=== PATIENT | female | born 2005 | race Caucasian/White ===

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

== ENCOUNTER 2025-03-20 09:49 | Emergency (ER) | payer OTHER, SELFPAY ==
--- OUTSIDE RECORDS SUMMARY | 2025-02-04 09:00 | XMS_ITS | Encounter Summary ---
Author Organization [facility] Address [address] [place] [address] [address] [place] [address] Care Team Providers Care Pre K Teacher Name Role Phone Madison Ren MD Primary Care Provider Jody Murray MECHANICAL EQUIPMENT SALES ENGINEER-PLANT SENIOR MANAGER Unavailable [phone] Reason for Visit * Reason Comments Wellness Physical Annual - sports phys icalWould like to discuss anxiety and possibly starting medication Encounter Details Date Type Department Care Team (Late st Contact Info) Description 02/04/2025 9:00 AM CDT Office Visit [facility] [address] [place], [place] [id number] Madison Ren MD [address] [place] [id number] Annual physical exam (Primary Dx); 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 ([facility]-HCC); Anxiety; Routine sports physical exam; Sprain of left middle finger, unspecified site of digit, subsequent encounter Discharge Disposition: Home, Self Care Social History Tobacco Use Types Packs/Day Years Used Date Smoking Tobacco: Never Passive Smoke Exposure: Never Smokeless Tobacco: Never Alcohol Use Standard Drinks/Week Comments No 0 (1 standard drink = 0.6 oz pur e alcohol) PHQ-2 Answer Date Recorded PHQ-9 Total (Adult) 7 02/04/2025 Abuse/Neglect Answer Date Recorded Member of Clubs or Organizations Not on file 02/05/2025 Does the patient display any signs or symptoms of abuse or neglect? No 02/05/2025 Sexually Active Control Partners Comments Yes Condom Male Comments No Sex and Gender Information Value Date Recorded Sex Assigned at Not on file Legal Sex Female 5:05 AM CDT Gender Identity Not on file Sexual Orientation Not on file documented as of this encounter Last Filed Vital Signs Vital Sign Reading Time Taken Comments Blood Pressure 110/62 02/04/2025 8:54 AM CDT Pulse 68 02/04/2025 8:54 AM CDT Temperature 36.4 C (97.6 F) 02/04/2025 8:54 AM CDT Respiratory Rate - - Oxygen Saturation 97% 02/04/2025 8:54 AM CDT Inhaled Oxygen Concentration - - Weight 66 kg (145 lb 6.4 oz) 02/04/2025 8:54 AM CDT Height 155.3 cm (5' 1.14) 02/04/2025 8:54 AM CD T Body Mass Index 27.35 02/04/2025 8:54 AM CDT documented in this encounter Functional Status * Do you have difficulty with walking, balance, climbing stairs, or had a fall in the last 3 months? Answer Date of Assessment Author No 02/03/2019 12:58 PM CDT Arabella Gomez LPN documented as of this encounter Patient Instructions * Attachments The following attachments cannot be sent through Care Everywhere. * Anxiety, Your Body's Response to (Iranian) documented in this encounter Progress Notes * Madison Ren MD - 02/04/2025 9:00 AM CDT Images from the original note were not included. Annual Wellness Exam Patient Name: Debi Corado Age/Sex: 19yr/female Date of visit: 02/04/2025 CSN: [id number] HPI Debi Corado is a 19yr female here for annual exam and sports physical. History of Present Illness She uses albuterol as needed for her allergy-induced asthma, which is triggered by exposure to dogs, cats, and dust. She does not require it for sports activities. She also takes Zyrtec for her allergies, which effectively manages her symptoms without causing additional runny or stuffy nose. She has no history of mood disorders but sought counseling this year due to difficulties with mood and anxiety. The counselor suggested several strategies, which were ineffective, and recommended anxiety medication. She reports feeling irritable and easily frustrated but does not feel depressed or tearful. Her motivation remains intact, and she has no thoughts of self-harm. She describes herself as a worrier, often feeling overwhelmed. Despite good time management skills, she struggles with weekly planning, leading to anxiety that affects her focus on schoolwork and hockey. She is currently studying premed and maintains satisfactory grades. She had a double sprain on her left third digit and was seeing a hand doctor in the spring. She wasgiven some treatments over the summer and was told it should be fine, but it is still swollen. She can bend it, but if she jams it wrong, it flares up and becomes tender. Has previously had xrays Problem List and History Problem List: Past Medical History: Diagnosis Date Allergy-induced asthma ([facility]) Allergy-induced asthma ([facility]) 02/04/2025 Surgical History: Past Surgical History: Procedure Laterality Date CLOSED PINNING 03/21/2012 RIGHT ELBOW CLOSED REDUCTION WITH PERCUTANEOUS PINNING VS.ORIF; Surgeon: Nicolas Livingston MD Allergies: No Known Allergies Social History: Social History Socioeconomic History Marital status: Single Tobacco Use Smoking status: Never Passive exposure: Never Smokeless tobacco: Never Substance and Sexual Activity Alcohol use: No Drug use: No Sexual activity: Yes Partners: Male control/protection: Condom Family History: Family History Problem Relation Name Age of Onset No Known Problems Mother No Known Problems Father No Known Problems Sister No Known Problems Sister No Known Problems Sister No Known Problems Brother Hypertension Maternal Grandmother Not otherwise listed - Cancer Maternal Grandmother Hypertension Maternal Grandfather Hypertension Paternal Grandmother Diabetes Paternal Grandfather Hypertension Paternal Grandfather Cardiomyopathy Neg Hx Sudden Neg Hx Arrhythmia Neg Hx Construction Technician: No data to display Patient's last menstrual period was 01/12/2025 (exact date). Menses regular Abnormal Bleeding: No Vaginal Discharge: No 0 Abnormal Pap Smear: NA Gardasil: Partial Sexual History: Sexually Active: Yes Sexual Orientation: heterosexual Number of Partners (Last 6 months): 1 Review of Systems Constitutional: No fever Eyes: No vision changes, eye pain or discharge. ENT: No ear pain, nasal congestion, rhinorrhea, sore throat Breast: No lumps, tenderness, redness or discharge. Cardiovascular: No chest pain, irregular heart beats or racing of heart Respiratory: No cough, shortness of breath or wheezing. Gastrointestinal: No abdominal pain, nausea, vomiting, constipation or diarrhea. No blood in stoolsor dark colored stools. Genito-Urinary: No pain or burning with urination. No trouble voiding. No vaginal discharge or abnormal vaginal bleeding. Musculoskeletal: No joint swelling. No back pain Neurological: No loss of consciousness Endocrine: No cold or heat intolerance. No menstrual irregularities. HemeOnc: No easy bruising or bleeding Psychiatric: No depression, suicidal thought. Anxiety Allergy/Immunology: No skin allergies. Allergic rhinitis. Skin: No rashes, itching, suspicious lesions or jaundice. Physical Exam BP 110/62 (Patient Position: Sitting) Pulse 68 Temp 97.6 ??F (36.4 ??C) (Temporal) Ht 1.553 m (5' 1.14) Wt 66 kg (145 lb 6.4 oz) SpO2 97% BMI 27.35 kg/m2 General Appearance: well developed, sitting comfortably, alert, not in acute distress. Head: Atraumatic, normocephalic Eyes: PERRL, EOM grossly intact, no scleral icterus, no discharge Ears: External ears normal, bilateral tympanic membranes normal Throat: Oral cavity and pharynx normal. No inflammation, swelling exudate or lesions. Neck: Supple, non-tender, no mass or lymphandenopathy, no noted thyromegaly. Lungs: Respiratory effort normal, clear to auscultation bilaterally with no wheezes, rhonci or rales. Heart: Regular rate and rhythm, normal S1 and S2, no murmurs, clicks or rubs. Abdomen: Normal bowel sounds, soft, non-distended, non-tender, no noted mass and no noted organomegaly. Extremities: Left third digit mild swelling, tender to palpation. No lower extremity edema Neurologic: Alert, CN III-XII grossly intact, moving all extremities grossly, gait normal, strengthnormal Psychiatric: Normal mood and behavior. Normal thought processes. Skin: Normal color, no rashes or jaundice on examined areas. Current Medications: Current Outpatient Medications Medication Sig albuterol HFA (PROVENTIL,PROAIR,VENTOLIN) 108 (90 Base) MCG/ACT inhaler Inhale 1 puff by mouth every 4 to 6 hours as needed for shortness of breath, wheezing or cough. Shake well before using. cetirizine (ZYRTEC) 10 mg tablet Take by mouth 1 time per day FLUoxetine (PROZAC) 10 mg capsule Take 1 capsule by mouth daily for 2 weeks, then increase to 2 capsules daily Assessment and Plan Debi Corado is a 19yr female here for annual exam. Annual Exam - Cervical cancer screening: NA - Breast cancer screening: NA - STI screening: Declined - Depression and anxiety screening: reviewed and discussed, see below - Immunizations: elects to return - Diet and lifestyle modifications were discussed with the patient and a follow up plan is in place. Sports Physical - See form Assessment & Plan 1. Allergy-induced asthma. - Uses albuterol as needed, primarily when exposed to allergens such as dogs, cats, and dust. - Does not require albuterol for sports activities. - Prescription for albuterol will be sent to pharmacy. - If symptoms worsen, she should notify the clinic. 2. Anxiety. - Mood not controlled - Reviewed care options - Prozac (fluoxetine) 10 mg once daily will be initiated for 2 weeks. If tolerated well, the dosagewill be increased to 20 mg daily. - Advised to continue counseling services available at school. - If she experiences any adverse effects or feels unlike herself, she should contact the clinic. - Follow up in 6-8 weeks 3. Left third digit sprain. - Reports previous xrays, reviewed cares and encouraged to follow up with ortho Return to clinic as needed and yearly. Discussed assessment and plan and all questions answered. Patient voiced understanding and in agreement with plan. 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
--- OUTSIDE RECORDS SUMMARY | 2025-02-05 14:45 | XMS_ITS | Encounter Summary ---
Author Organization [facility] Address [facility] [place] [address] Care Team Providers Care Java Programmer Name Role Phone Madison Ren MD Primary Care Provider Murray Jody Gongora WEIGHT LOSS PHYSICIAN-OFFICE MACHINE REPAIR SHOP SUPERVISOR Unavailable [phone] Reason for Visit * Reason Comments Abdominal Pain Woke up with lower a bdominal pain like 0540, across low abdomen , pain is sharp and dull now unless presses on it then it is sharp Nausea Vomited from the angi n, reports that bowel movements are normal for her Encounter Details Date Type Department Care Team (Late st Contact Info) Description 02/05/2025 2:45 PM CDT Office Visit [facility] [address] [phone] Domingo Rocha, PAHelenC [address] [phone] Right lower quadrant abdominal pain (Primary Dx); Nausea and vomiting, unspecified vomiting type; Umbilical pain; Acute pain of right shoulder Discharge Disposition: Home, Self Care Social History [...] Sign Reading Time Taken Comments Blood Pressure 98/58 02/05/2025 3:00 PM CDT Pulse 52 02/05/2025 3:00 PM CDT Temperature 36.4 C (97.5 F) 02/05/2025 3:00 PM CDT Respiratory Rate 18 02/05/2025 3:00 PM CDT Oxygen Saturation 99% 02/05/2025 3:00 PM CDT Inhaled Oxygen Concentration - - Weight 65.8 kg (145 lb) 02/05/2025 3:00 PM CDT Height - - Body Mass Index 27.27 02/04/2025 8:54 AM CDT documented in this encounter Functional Status * Do you have difficulty with walking, balance, climbing stairs, or had a fall in the last 3 months? Answer Date of Assessment Author No 02/03/2019 12:58 PM CDT Arabella Gomez LPN documented as of this encounter Progress Notes * Domingo Rocha PA-C - 02/05/2025 6:50 PM CDT OFFICE VISIT Patient Name: Debi Corado Age/Sex: 19yr/female Date of visit: 02/05/2025 [facility]: [id number] Reason for Visit: Abdominal Pain HPI: Debi Corado is an 19yr female who presents with abdominal pain. The pain began at 0530 this morning, starting in the suprapubic and radiating to RLQ Pain is colicky, stabbing, and dull It is fluctuating - pain is now dull unless pressed on which makes it sharp. Patient denies constipation and diarrhea. Bowel movements are normal. She has taken nothing. She has had no abdominal surgeries.. REVIEW OF SYSTEMS Review and is negative except for what is listed above VITAL SIGNS Blood pressure 98/58, pulse 52, temperature 97.5 ??F (36.4 ??C), temperature source Temporal, resp.rate 18, weight 65.8 kg (145 lb), last menstrual period 01/12/2025, SpO2 99%, not currently . PHYSICAL EXAM: General Appearance: healthy, no distress HEENT:unremarkable Lungs: Good diaphragmatic excursion. Lungs clear to auscultation bilaterally Heart: regular rate and rhythm without murmur, gallop, or rubs. Abdomen: Abdomen soft, non-tender. BS normal. No masses, No organomegaly, positive findings: tenderness moderate and rebound present suprapubic and RLQ Skin: no bruises, rashes or sores seen Extremities: No edema noted Labs: Results for orders placed or performed during the hospital encounter of 02/05/25 COMPREHENSIVE METABOLIC PANEL Result Value Ref Range Glucose 80 70 - 99 mg/dL BUN 13 6 - 22 mg/dL Creatinine 0.92 0.55 - 1.02 mg/dL BUN/Creatinine Ratio 14.1 10.0 - 25.0 Sodium 139 136 - 145 meq/L Potassium 4.5 3.5 - 5.1 meq/L Chloride 108 98 - 109 meq/L CO2 23 20 - 29 meq/L Anion Gap with K 13 6 - 20 meq/L Calcium 8.9 8.5 - 10.5 mg/dL Protein Total 6.3 6.0 - 8.3 g/dL Albumin 4.2 3.5 - 5.0 g/dL Alkaline Phosphatase 43 40 - 150 U/L AST - SGOT 22 <6 - 45 U/L ALT - SGPT 22 <6 - 55 U/L Bilirubin Total 0.2 (L) 0.3 - 1.2 mg/dL Age 19 Years eGFRcr() >90 >=60 mL/min/1.73m2 URINALYSIS REFLEX TO CULTURE (URINE DIP, REFLEX TO MICROSCOPIC, REFLEX TO CULTURE) Specimen: Clean Catch; Urine Result Value Ref Range Color Urine Yellow Kamla, Dark Yellow, Straw, Yellow, Colorless Clarity Urine Slightly Cloudy (A) Clear Glucose Urine Negative Negative Bilirubin Urine Negative Negative Ketones Urine Negative Negative, 5 mg/dL, 10 mg/dL Specific [place] 1.015 1.002 - 1.030 Blood Urine Negative Negative PH Urine 7.0 5.0, 5.5, 6.0, 6.5, 7.0, 7.5, 8.0 Protein Urine Negative Negative Urobilinogen < 2 mg/dL < 2 mg/dL Nitrite Negative Negative Leukocyte Esterase Urine Small (1+) (A) Negative AMYLASE Result Value Ref Range Amylase 46 25 - 125 U/L LIPASE Result Value Ref Range Lipase 45 8 - 78 U/L LAB ONLY-COMPLETE BLOOD COUNT WITH DIFFERENTIAL Result Value Ref Range WBC 7.6 4.0 - 11.0 K/uL RBC 4.25 3.80 - 5.30 M/uL Hemoglobin 12.4 11.5 - 15.8 g/dL Hematocrit 39.0 35.0 - 45.0 % MCV 91.8 80.0 - 98.0 fL MCH 29.2 25.5 - 34.0 pg MCHC 31.8 31.5 - 36.5 g/dL RDW-CV 12.5 11.5 - 15.5 % RDW-SD 42.8 35.5 - 50.0 fl Platelet Count 214 140 - 400 K/uL MPV 10.6 8.5 - 12.0 fL Seg Neut Absolute 4.3 1.8 - 8.0 K/uL Lymphocytes Absolute 1.9 0.8 - 4.1 K/uL Monocytes Absolute 0.6 0.0 - 1.0 K/uL Eosinophils Absolute 0.8 (H) 0.0 - 0.7 K/uL Basophil Absolute 0.1 0.0 - 0.2 K/uL Immature Granulocyte Absolute <0.04 0.00 - 0.06 K/uL Neutrophils Abs. (Segs and Bands) 4,300 /uL Neutrophils Percent 55.8 % Lymphocytes Percent 24.7 % Monocytes Percent 7.5 % Immature Granulocyte Percent 0.0 % Eosinophils Percent 11.0 % Basophil Percent 1.0 % LAB ONLY-URINE MICROSCOPIC REFLEX Result Value Ref Range WBC Urine 11-20 /hpf (A) Negative, 0-5 /hpf RBC Urine 0-2 /hpf Negative, 0-2 /hpf Squamous Epithelial Cells Negative (0-2) /hpf Negative (0-2) /hpf Bacteria Occ (0-10) /hpf (A) Negative ASSESSMENT/PLAN: 1. Abdominal Pain: ICD-10-CM 1. Right lower quadrant abdominal pain R10.31 COMPLETE BLOOD COUNT WITH DIFFERENTIAL COMPREHENSIVE METABOLIC PANEL URINALYSIS REFLEX TO CULTURE (URINE DIP, REFLEX TO MICROSCOPIC, REFLEX TO CULTURE) AMYLASE LIPASE 2. Nausea and vomiting, unspecified vomiting type R11.2 COMPLETE BLOOD COUNT WITH DIFFERENTIAL COMPREHENSIVE METABOLIC PANEL URINALYSIS REFLEX TO CULTURE (URINE DIP, REFLEX TO MICROSCOPIC, REFLEX TO CULTURE) AMYLASE LIPASE 3. Umbilical pain R10.33 COMPLETE BLOOD COUNT WITH DIFFERENTIAL COMPREHENSIVE METABOLIC PANEL URINALYSIS REFLEX TO CULTURE (URINE DIP, REFLEX TO MICROSCOPIC, REFLEX TO CULTURE) AMYLASE LIPASE 4. Acute pain of right shoulder M25.511 AMYLASE LIPASE Recommendations: Labs reassuring. UA is in process of C&S, nitrates negative. At this time CT abdomen not indicated. Patient alerted to red flag symptoms that would warrant return to care. IN theinterim, keep diet simple - no spicy foods, no citrus, no tomato based foods. BRAT - C&S shouldreturn either tomorrow or Saturday and if indicated, abx will be started at that time for UTI. documented in this encounter Plan of Treatment Not on file documented as of this encounter Results * LIPASE (02/05/2025 3:15 PM CDT) Lipase 45 8 - 78 U/L 02/05/2025 4:19 PM CDT [facility] Blood BLOOD SPECIMEN / Unknown 02/05/2025 3:15 PM CDT 02/05/2025 3:15 PM CDT Domingo Rocha PA-C LAB BLOOD Final Result Performing Organization Address [facility] Co de Phone Number [address] [address] * AMYLASE (02/05/2025 3:15 PM CDT) Amylase 46 25 - 125 U/L 02/05/2025 4:19 PM CDT [facility] Blood BLOOD SPECIMEN / Unknown 02/05/2025 3:15 PM CDT 02/05/2025 3:15 PM CDT Domingo Rocha PA-C LAB BLOOD Final Result Performing Organization Address [facility] Co de Phone Number [address] [address] * (ABNORMAL) URINALYSIS REFLEX TO CULTURE (URINE DIP, REFLEX TO MICROSCOPIC, REFLEX TO CULTURE) (02/05/2025 3:15 PM CDT) Color Urine Yellow Kamla, Dark Yellow, Straw, Yellow, Colorless 02/05/2025 3:32 PM T [facility] Clarity Urine Slightly Cloudy(A) Clear 02/05/2025 3:32 PM T [facility] Glucose Urine Negative Negative 02/05/2025 3:32 PM T [facility] Bilirubin Urine Negative Negative 3:32 PM [facility] Ketones Urine Negative Negative, 5 mg/dL, 10 mg/dL 02/05/2025 3:32 PM T [facility] Specific [place] 1.015 1.002 - 1.030 02/05/2025 3:32 PM [facility] Blood Urine Negative Negative 02/05/2025 3:32 PM [facility] PH Urine 7.0 5.0, 5.5, 6.0, 6.5, 7.0, 7.5, 8.0 02/05/2025 3:32 PM [facility] Protein Urine Negative Negative 02/05/2025 3:32 PM [facility] Urobilinogen < 2 mg/dL < 2 mg/dL 02/05/2025 3:32 PM [facility] Nitrite Negative Negative 02/05/2025 3:32 PM [facility] Leukocyte Esterase Urine Small (1+)(A) Negative 02/05/2025 3:32 PM [facility] Urine URINE SPECIMEN OBTAINED BY CLEAN CATCH PROCEDURE / Unknown 02/05/2025 3:15 PM CDT 02/05/2025 3:15 PM CDT Narrative [facility] - 02/05/2025 3:32 PM CDT Microscopic Exam Reflexed us Domingo Rocha PA-C LAB NON BLOOD Final Result [facility] [address] [place] [address] * (ABNORMAL) COMPREHENSIVE METABOLIC PANEL (02/05/2025 3:15 PM T) [facility] Glucose 80 70 - 99 mg/dL 02/05/2025 4:19 PM [facility] BUN 13 6 - 22 mg/dL 02/05/2025 4:19 PM [facility] Creatinine 0.92 0.55 - 1.02 mg/dL 02/05/2025 4:19 PM [facility] BUN/Creatinine Ratio 14.1 10.0 - 25.0 02/05/2025 4:19 PM [facility] Sodium 139 136 - 145 meq/L 02/05/2025 4:19 PM [facility] Potassium 4.5 3.5 - 5.1 meq/L 02/05/2025 4:19 PM [facility] Chloride 108 98 - 109 meq/L 02/05/2025 4:19 PM [facility] CO2 23 20 - 29 meq/L 02/05/2025 4:19 PM [facility] Anion Gap with K 13 6 - 20 meq/L 02/05/2025 4:19 PM [facility] Calcium 8.9 8.5 - 10.5 mg/dL 02/05/2025 4:19 PM [facility] Protein Total 6.3 6.0 - 8.3 g/dL 02/05/2025 4:19 PM [facility] Albumin 4.2 3.5 - 5.0 g/dL 02/05/2025 4:19 PM [facility] Alkaline Phosphatase 43 40 - 150 U/L 02/05/2025 4:19 PM [facility] AST - SGOT 22 <6 - 45 U/L 02/05/2025 4:19 PM [facility] ALT - SGPT 22 <6 - 55 U/L 02/05/2025 4:19 PM [facility] Bilirubin Total 0.2(L) 0.3 - 1.2 mg/dL 02/05/2025 4:19 PM CDT [facility] Age 19 Years 02/05/2025 4:19 PM CDT [facility] eGFRcr() >90 >=60 mL/min/1.7 3m2 02/05/2025 4:19 PM CDT [facility] Comment:Estimated GFR calcul ated using the 2020 CKD-EPI creatinine equation Blood BLOOD SPECIMEN / Unknown 02/05/2025 3:15 PM CDT 02/05/2025 3:15 PM CDT Domingo Rocha PA-C LAB BLOOD Final Result [facility] [place] [address] [id number] [address] [address] documented in this encounter Visit Diagnoses Diagnosis Right lower quadrant abdominal pain- Primary Abdominal pain, right lower quadrant Nausea and vomiting, unspecified vomiting type Umbilical pain Abdominal pain, unspecified site Acute pain of right shoulder documented in this encounter Care Teams Java Programmer Relationship Specialty Start Date End Date Madison Ren MD [address], [place] [id number] PCP - General Family Medicine 09/10/22 Jody Murray APRN-OFFICE MACHINE REPAIR SHOP SUPERVISOR [address] [place] [address] PCP - Attributed Provider 09/22/2201/30 documented as of this encounter
--- OUTSIDE RECORDS SUMMARY | 2025-02-05 15:10 | XMS_ITS | Encounter Summary ---
Author Organization [employer] [facility] Address [address] [place] [address] Care Team Providers Care Senior Planning Manager Name Role Phone Madison Ren MD Primary Care Provider Jody Murray APRN-RN GASTROENTEROLOGY Unavailable [phone] Encounter Details Date Type Department Care Team (Latest Contact Info) Description 02/05/2025 3:10 PM CDT - 02/05/2025 11:59 PM CDT Hospital Encounter [facility] [address] [address] Discharge Disposition: Home, Self Care Social History [...] on file documented as of this encounter Functional Status * Do you have difficulty with walking, balance, climbing stairs, or had a fall in the last 3 months? 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 Shake well before using. 18 g 1 02/04/2025 10:10 AM CDT 02/04/2025 cetirizine (ZYRTEC) 10 mg tablet Take by mouth 1 time per day FLUoxetine (PROZAC) 10 mg capsuleIndications :Anxiety Take 1 capsule by mouth daily for 2 weeks, then increase to 2 capsules daily 90 capsule 02/04/2025 10:10 AM CDT 02/04/2025 documented as of this encounter Plan of Treatment Not on file documented as of this encounter Procedures Procedure Name Priority Date/Time Associated Diagnosis Comments LAB ONLY-URINE MICROSCOPIC REFLEX [facility] 02/05/2025 3:15 PM CDT Right lower quadrant abdominal pain Nausea and vomiting, unspecified vomiting type Umbilical pain LAB ONLY-COMPLETE BLOOD COUNT WITH DIFFERENTIAL [facility] 02/05/2025 3:15 PM CDT Right lower quadrant abdominal pain Nausea and vomiting, unspecified vomiting type Umbilical pain URINALYSIS REFLEX TO CULTURE (URINE DIP, REFLEX TO MICROSCOPIC, REFLEX TO CULTURE) [facility] 02/05/2025 3:15 PM CDT Right lower quadrant abdominal pain Nausea and vomiting, unspecified vomiting type Umbilical pain CULTURE BACTERIAL, URINE [facility] 02/05/2025 3:15 PM CDT Right lower quadrant abdominal pain Nausea and vomiting, unspecified vomiting type Umbilical pain LIPASE [facility] 02/05/2025 3:15 PM CDT Right lower quadrant abdominal pain Nausea and vomiting, unspecified vomiting type Umbilical pain Acute pain of right shoulder AMYLASE [facility] 02/05/2025 3:15 PM CDT Right lower quadrant abdominal pain Nausea and vomiting, unspecified vomiting type Umbilical pain Acute pain of right shoulder COMPREHENSIVE METABOLIC PANEL [facility] 02/05/2025 3:15 PM CDT Right lower quadrant abdominal pain Nausea and vomiting, unspecified vomiting type Umbilical pain LAB ONLY-COMPLETE BLOOD COUNT WITH DIFFERENTIAL [facility] 02/05/2025 3:15 PM CDT Right lower quadrant abdominal pain Nausea and vomiting, unspecified vomiting type Umbilical pain documented in this encounter Results * CULTURE BACTERIAL, URINE (02/05/2025 3:15 PM CDT) Culture Result No growth at 48 hours 02/07/2025 2:24 PM CDT [facility] Urine URINE SPECIMEN OBTAINED BY CLEAN CATCH PROCEDURE / Unknown 02/05/2025 3:15 PM CDT 02/05/2025 3:15 PM CDT Domingo Rocha PA-C LAB MICROBIOLOGY Final Result Performing Organization Address City/State/[facility] Co de Phone Number [facility] [address] [address] * (ABNORMAL) LAB ONLY-URINE MICROSCOPIC REFLEX (02/05/2025 3:15 PM CDT) WBC Urine 11-20 /hpf(A) Negative, 0-5 /hpf 02/05/2025 3:32 PM CDT [facility] RBC Urine 0-2 /hpf Negative, 0-2 /hpf 02/05/2025 3:32 PM CDT [facility] Squamous Epithelial Cells Negative (0-2) /hpf Negative (0-2) /hpf 02/05/2025 3:32 PM CDT [facility] Bacteria Occ (0-10) /hpf(A) Negative 02/05/2025 3:32 PM CDT [facility] Urine URINE SPECIMEN OBTAINED BY CLEAN CATCH PROCEDURE / Unknown 02/05/2025 3:15 PM CDT 02/05/2025 3:15 PM CDT Narrative [facility] - 02/05/2025 3:32 PM CDT Urine Culture Reflexed us Domingo Rocha PA-C LAB ONLY ORDERS Final Result [facility] [address] [place] [id number] * (ABNORMAL) LAB ONLY-COMPLETE BLOOD COUNT WITH DIFFERENTIAL (02/05/2025 3:15 PM CDT) WBC 7.6 4.0 - 11.0 K/uL 02/05/2025 3:17 PM [facility] RBC 4.25 3.80 - 5.30 M/uL 02/05/2025 3:17 PM [facility] Hemoglobin 12.4 11.5 - 15.8 g/dL 02/05/2025 3:17 PM [facility] Hematocrit 39.0 35.0 - 45.0 % 02/05/2025 3:17 PM [facility] MCV 91.8 80.0 - 98.0 fL 02/05/2025 3:17 PM [facility] MCH 29.2 25.5 - 34.0 pg 02/05/2025 3:17 PM [facility] MCHC 31.8 31.5 - 36.5 g/dL 02/05/2025 3:17 PM [facility] RDW-CV 12.5 11.5 - 15.5 % 02/05/2025 3:17 PM [facility] RDW-SD 42.8 35.5 - 50.0 fl 02/05/2025 3:17 PM [facility] Platelet Count 214 140 - 400 K/uL 02/05/2025 3:17 PM [facility] MPV 10.6 8.5 - 12.0 fL 02/05/2025 3:17 PM [facility] Seg Neut Absolute 4.3 1.8 - 8.0 K/uL 02/05/2025 3:17 PM [facility] Lymphocytes Absolute 1.9 0.8 - 4.1 K/uL 02/05/2025 3:17 PM T [facility] Monocytes Absolute 0.6 0.0 - 1.0 K/uL 02/05/2025 3:17 PM [facility] Eosinophils Absolute 0.8(H) 0.0 - 0.7 K/uL 02/05/2025 3:17 PM [facility] Basophil Absolute 0.1 0.0 - 0.2 K/uL 02/05/2025 3:17 PM [facility] Immature Granulocyte Absolute <0.04 0.00 - 0.06 K/uL 02/05/2025 3:17 PM [facility] Neutrophils Abs. (Segs and Bands) 4,300 /uL 02/05/2025 3:17 PM [facility] Neutrophils Percent 55.8 % 02/05/2025 3:17 PM [facility] Lymphocytes Percent 24.7 % 02/05/2025 3:17 PM T [facility] Monocytes Percent 7.5 % 02/05/2025 3:17 PM [facility] Immature Granulocyte Percent 0.0 % 02/05/2025 3:17 PM [facility] Eosinophils Percent 11.0 % 02/05/2025 3:17 PM [facility] Basophil Percent 1.0 % 02/06/20 3:17 PM [facility] Blood BLOOD SPECIMEN / Unknown Venipuncture / Unknown 02/05/2025 3:15 PM CDT 02/05/2025 3:15 PM CDT us Domingo Rocha PA-C LAB ONLY ORDERS Final Result [facility] [address] [place] [address] * LIPASE (02/05/2025 3:15 PM CDT) Lipase 45 8 - 78 U/L 02/05/2025 4:19 PM CDT [facility] Blood BLOOD SPECIMEN / Unknown 02/05/2025 3:15 PM CDT 02/05/2025 3:15 PM CDT Domingo Layton Aj PA-C LAB BLOOD Final Result Performing Organization Address City/[facility]/ZIP Co de Phone Number [address] [address] * AMYLASE (02/05/2025 3:15 PM CDT) Amylase 46 25 - 125 U/L 02/05/2025 4:19 PM CDT [facility] Blood BLOOD SPECIMEN / Unknown 02/05/2025 3:15 PM CDT 02/05/2025 3:15 PM CDT Domingo Rocha PA-C LAB BLOOD Final Result Performing Organization Address [facility] de Phone Number [address] [address] * (ABNORMAL) URINALYSIS REFLEX TO CULTURE (URINE DIP, REFLEX TO MICROSCOPIC, REFLEX TO CULTURE) (02/05/2025 3:15 PM CDT) Color Urine Yellow Kamla, Dark Yellow, Straw, Yellow, Colorless 02/05/2025 3:32 PM T [facility] Clarity Urine Slightly Cloudy(A) Clear 02/05/2025 3:32 PM T [facility] Glucose Urine Negative Negative 02/05/2025 3:32 PM T [facility] Bilirubin Urine Negative Negative 3:32 PM T [facility] Ketones Urine Negative Negative, 5 mg/dL, 10 mg/dL 02/05/2025 3:32 PM T [facility] Specific [place] 1.015 1.002 - 1.030 02/05/2025 3:32 PM T [facility] Blood Urine Negative Negative 02/05/2025 3:32 PM T [facility] PH Urine 7.0 5.0, 5.5, 6.0, 6.5, 7.0, 7.5, 8.0 02/05/2025 3:32 PM CDT [facility] Protein Urine Negative Negative 02/05/2025 3:32 PM T [facility] Urobilinogen < 2 mg/dL < 2 mg/dL 02/05/2025 3:32 PM CDT [facility] Nitrite Negative Negative 02/05/2025 3:32 PM T [facility] Leukocyte Esterase Urine Small (1+)(A) Negative 02/05/2025 3:32 PM T [facility] Urine URINE SPECIMEN OBTAINED BY CLEAN CATCH PROCEDURE / Unknown 02/05/2025 3:15 PM CDT 02/05/2025 3:15 PM CDT [facility] - 02/05/2025 3:32 PM CDT Microscopic Exam Reflexed Domingo Rocha PA-C LAB NON BLOOD Final Result [facility] [address] [place] [phone] * (ABNORMAL) COMPREHENSIVE METABOLIC PANEL (02/05/2025 3:15 PM CDT) [facility] Signature Glucose 80 70 - 99 mg/dL 02/05/2025 4:19 PM [facility] [place] BUN 13 6 - 22 mg/dL 02/05/2025 4:19 PM [facility] Creatinine 0.92 0.55 - 1.02 mg/dL 02/05/2025 4:19 PM [facility] [place] BUN/Creatinine Ratio 14.1 10.0 - 25.0 02/05/2025 4:19 PM [facility] Sodium 139 136 - 145 meq/L 02/05/2025 4:19 PM [facility] Potassium 4.5 3.5 - 5.1 meq/L 02/05/2025 4:19 PM [facility] [place] Chloride 108 98 - 109 meq/L 02/05/2025 4:19 PM [facility] [place] CO2 23 20 - 29 meq/L 02/05/2025 4:19 PM [facility] [place] Anion Gap with K 13 6 - 20 meq/L 02/05/2025 4:[address] [facility] [place] Calcium 8.9 8.5 - 10.5 mg/dL 02/05/2025 4:[address] [facility] [place] Protein Total 6.3 6.0 - 8.3 g/dL 02/05/2025 4:[address] [facility] [place] Albumin 4.2 3.5 - 5.0 g/dL 02/05/2025 4:[address] [facility] [place] Alkaline Phosphatase 43 40 - 150 U/L 02/05/2025 4:[address] [facility] 22 <6 - 45 U/L 02/05/2025 4:[address] [facility] [place] ALT - SGPT 22 <6 - 55 U/L 02/05/2025 4:[address] [facility] [place] Bilirubin Total 0.2(L) 0.3 - 1.2 mg/dL 02/05/2025 4:[address] [facility] Age 19 Years 02/05/2025 4:19 PM [facility] eGFRcr() >90 >=60 mL/min/1.7 3m2 02/05/2025 4:[address] [facility] [place] Comment:Estimated GFR calcul ated using the 2020 CKD-EPI creatinine equation Blood BLOOD SPECIMEN / Unknown 02/05/2025 3:15 PM CDT 02/05/2025 3:15 PM CDT Domingo Rocha PA-C LAB BLOOD Final Result [facility] [address] [address] [address] documented in this encounter Visit Diagnoses Diagnosis Right lower quadrant abdominal pain Abdominal pain, right lower quadrant Nausea and vomiting, unspecified vomiting type Umbilical pain Abdominal pain, unspecified site Acute pain of right shoulder documented in this encounter Care Teams Senior Planning Manager Relationship Specialty Start Date End Date Madison Ren MD [address] [place] [address] PCP - General Family Medicine 09/10/22 Jody Murray APRN-RN GASTROENTEROLOGY [address] [place] [address] PCP - Attributed Provider 09/22/2201/30 documented as of this encounter
--- OUTSIDE RECORDS SUMMARY | 2025-03-15 07:15 | XMS_ITS | Encounter Summary ---
Author Organization [facility] [employer] [facility] Address [address] [place] [address] [address] [place] [address] Care Team Providers Care Endo Tech Name Role Phone Madison Ren MD Primary Care Provider Madison Ren MD Unavailable Encounter Details Date Type Department Care Team (Late st Contact Info) Description 03/15/2025 7:15 AM CDT Office Visit [facility] [address] [address] Madison Ren MD [address] [place] [phone] Anxiety (Primary Dx); Light headedness; Dizziness Discharge Disposition: Home, Self Care Social History [...] Everywhere. * Anxiety, Your Body's Response to ([place]) documented in this encounter Progress Notes * Madison Ren MD - 03/15/2025 7:15 AM CDT Office Visit Patient Name: Debi Corado Age/Sex: 20yr/female Date of visit: 03/15/2025 CSN: [id number] Reason for Visit: Dizziness, Mood HPI Debi Corado is a 20yr female who is seen via telemed for dizziness and mood. Patient messaged on 03/08 regarding difficulty with lightheadedness and feeling overheated with strenuous activity and she has been preparing for college sports, hockey. Recommended to present to be seen and also recommended decrease of fluoxetine to 10 mg daily. History of Present Illness She experienced an episode of dizziness and lightheadedness after a harder skating session for practice, which was followed by vomiting. This was her first encounter with such symptoms post-exercise.The following day, she experienced similar symptoms. No chest pain, racing. She has had occasional dizziness prior to exercise, but it was never as severe as this instance. Her symptoms included bothlightheadedness and a sensation of the room spinning. She does wonder about low glucose levels. Sherecalls an incident where she felt hungry while walking in the mall, which led to her not feeling well. However, these symptoms subsided after she consumed lemonade. She maintains a regular diet of three meals a day. She has been taking fluoxetine for mood and anxiety, which she reports has been beneficial. She reports no feelings of depression, feeling down or suicidal ideation. Her anxiety levels have become more manageable. She recently reduced the dose to 10 mg as instructed after reporting dizziness symptoms. She did go in as instructed and labs completed, reports no EKG done. She has practice again today. She maintains a regular diet of three meals a day. History Past Medical History: Past Medical History: Diagnosis Date Allergy-induced asthma ([facility]) 02/04/2025 Anxiety Current Medications: Current Outpatient Medications Medication Sig Dispense Refill Cetirizine HCl (CETIRIZINE, ZYRTEC, 10 MG TABLET STARTER PACK) Take 10 mg by mouth albuterol HFA (PROVENTIL,PROAIR,VENTOLIN) 108 (90 Base) MCG/ACT inhaler Inhale 1 puff by mouth every 4 to 6 hours as needed for shortness of breath, wheezing or cough. Shake well before using. 18 g 1 cetirizine (ZYRTEC) 10 mg tablet Take by mouth 1 time per day No current facility-administered medications for this visit. Social History: Social History Tobacco Use Smoking status: Never Passive exposure: Never Smokeless tobacco: Never Substance Use Topics Alcohol use: No Drug use: No Allergies: Allergies Allergen Reactions Environmental Allergens Other (Specify in Comments) allergies Review of Systems Review of systems performed and pertinent positives noted in HPI. Physical Exam General: The patient is alert and appropriate, in no acute distress. Respiratory: Normal effort Psych: Normal mood and affect. Normal thought processes. Assessment and Plan Debi Corado is a 20yr female seen in clinic today for: Assessment & Plan 1. Dizziness and lightheadedness: - Uncertain etiology, consider medication - Has been seen with evaluation completed per report - Will have stop fluoxetine - Reviewed continued work on a healthy regular diet and increasing protein, staying hydrated - Keep me updated and discussed that if symptoms do not get better, worsen or other concern should seek medical attention 2. Anxiety: - Improved with medication but potential side effects - Stop fluoxetine - Will see how feels over the next week or two off the medication, if doing well and symptoms resolved will plan to start lexapro 5->10 mg, reviewed medication and use - Discussed supportive cares The assessment and plan of care was discussed with the patient and all questions answered. Patient voiced understanding and in agreement with plan. Telemedicine visit started 0716 AM and ended 0729 AM. City and State patient is located in: [place], patient's home. [facility] provider is located in: [facility]. Patient was seen via telemedicine due to Distance. Madison Veras MD 03/15/2025 documented in this encounter Plan of Treatment Not on file documented as of this encounter Visit Diagnoses Diagnosis Anxiety- Primary Anxiety state, unspecified Light headedness Dizziness and giddiness Dizziness Dizziness and giddiness documented in this encounter Care Teams Endo Tech Relationship Specialty Start Date End Date Madison Ren MD [address] [place] [address] PCP - General Family Medicine 09/10/22 Madison Ren MD [address] [place] [address] PCP - Attributed Provider 02/22/25 documented as of this encounter
--- OUTSIDE RECORDS SUMMARY | 2025-03-20 09:52 | XMS_ITS | Encounter Summary ---
Author Organization [facility] [employer] [facility] Address [address] [place] [address] [address] [place] [address] Care Team Providers Care Assurance Associate Name Role Phone Madison Ren MD Primary Care Provider Jody Murray PROTECTION SPECIALIST-WOOD SHOP TEACHER Unavailable [phone] Madison Ren MD Unavailable Encounter Details Date Type Department Care Team (Latest Contact Info) Description 11/20/2024 Lab Requisition [facility] [address] [place], [place] [id number] Guero Chase MD [address] [place], [place] [address] Encounter for general adult medical examination without abnormal findings Social History Tobacco Use Types Packs/Day Years Used Date Smoking Tobacco: Never Passive Smoke Exposure: Never Smokeless Tobacco: Never Alcohol Use Standard Drinks/Week Comments No 0 (1 standard drink = 0.6 oz pur e alcohol) PHQ-2 Answer Date Recorded PHQ-2 Total 0 02/03/2024 Abuse/Neglect Answer Date Recorded Member of Clubs or Organizations Not on file 02/25/2024 Does the patient display any signs or symptoms of abuse or neglect? No 02/25/2024 Comments No Sex and Gender Information Value [...] Gomez LPN documented as of this encounter Plan of Treatment Not on file documented as of this encounter Procedures Procedure Name Priority Date/Time Associated Diagnosis Comments QUANTIFERON (REFERENCE LAB) Routine 11/20/2024 1:51 PM CDT Encounter for general adult medical examination without abnormal findings LAB ONLY-QUANTIFERON (REFERENCE LAB) Routine 11/20/2024 1:51 PM CDT Encounter for general adult medical examination without abnormal findings LAB ONLY-QUANTIFERON TB1 (GREEN) Routine 11/20/2024 1:51 PM CDT Encounter for general adult medical examination without abnormal findings LAB ONLY-QUANTIFERON TB2 (YELLOW) Routine 11/20/2024 1:51 PM CDT Encounter for general adult medical examination without abnormal findings LAB ONLY-QUANTIFERON MITOGEN (PURPLE) Routine 11/20/2024 1:51 PM CDT Encounter for general adult medical examination without abnormal findings LAB ONLY-QUANTIFERON NIL (DURAND) Routine 11/20/2024 1:51 PM CDT Encounter for general adult medical examination without abnormal findings documented in this encounter Results * LAB ONLY-QUANTIFERON (REFERENCE LAB) (11/20/2024 1:51 PM CDT) Quantiferon Negative Negative LIAISON SARS-COV-2 S1/S2 IGG 11/24/2024 12:[address] [facility] [place] Comment: M. tuberculosis infection unlikely, but cannot be excluded especially when: 1. Illness is consistent with TB disease. 2. Likelihood of progression to disease is increased (e.g. due to immunosuppression). Blood BLOOD SPECIMEN / Unknown 11/20/2024 1:51 PM CDT 11/20/2024 1:51 PM CDT Narrative [facility] - 11/24/2024 12:25 PM CDT TB1 Tube (Expected Value: <0.35 IU/mL) value: 0.03 IU/mL TB2 Tube (Expected Value: <0.35 IU/mL) value: 0.01 IU/mL NIL Tube (Negative Int. Control Expected Value: <= 8.0 IU/mL) value: 0.01 IU/mL Mitogen Tube (Positive Int. Control Expected Value: >= 0.5 IU/mL) value: 5.56 IU/mL Interferon-gamma (TB1 and TB2) values should not be used to monitor disease progression or response to therapy. Guero Chase MD LAB ONLY ORDERS Final Result Performing Organization Address [facility] Co de Phone Number [facility] [address] [phone] * LAB ONLY-QUANTIFERON TB1 (GREEN) (11/20/2024 1:51 PM CDT) TB1 Calc 0.03 IU/mL LIAISON SARS-COV-2 S1/S2 IGG 11/24/2024 11:57 AM CDT [facility] TB1 Tube 0.03 IU/mL LIAISON SARS-COV-2 S1/S2 IGG 11/24/2024 11:57 AM CDT [facility] Blood BLOOD SPECIMEN / Unknown 11/20/2024 1:51 PM CDT 11/20/2024 1:51 PM CDT Guero Chase MD LAB ONLY ORDERS Final Result Performing Organization Address [facility]/ZIP Co de Phone Number [facility] [address] [place] [phone] * LAB ONLY-QUANTIFERON TB2 (YELLOW) (11/20/2024 1:51 PM CDT) TB2 Calc 0.01 IU/mL LIAISON SARS-COV-2 S1/S2 IGG 11/24/2024 11:59 AM CDT [facility] [place] TB2 Tube 0.01 IU/mL LIAISON SARS-COV-2 S1/S2 IGG 11/24/2024 11:59 AM CDT [facility] [place] Blood BLOOD SPECIMEN / Unknown 11/20/2024 1:51 PM CDT 11/20/2024 1:51 PM CDT Guero Chase MD LAB ONLY ORDERS Final Result Performing Organization Address [facility] Co de Phone Number [facility] [address] [place] [phone] * LAB ONLY-QUANTIFERON MITOGEN (PURPLE) (11/20/2024 1:51 PM CDT) Mitogen Calc 5.56 IU/mL LIAISON SARS-COV-2 S1/S2 IGG 11/24/2024 12:05 PM CDT [facility] [place] Mitogen Tube 5.56 IU/mL LIAISON SARS-COV-2 S1/S2 IGG 11/24/2024 12:05 PM CDT [facility] Blood BLOOD SPECIMEN / Unknown 11/20/2024 1:51 PM CDT 11/20/2024 1:51 PM CDT Guero Chase MD LAB ONLY ORDERS Final Result Performing Organization Address [facility] Co de Phone Number [facility] [address] [address] * LAB ONLY-QUANTIFERON NIL (DURAND) (11/20/2024 1:51 PM CDT) NIL Calc 0.01 IU/mL LIAISON SARS-COV-2 S1/S2 IGG 11/24/2024 11:55 AM CDT [facility] [place] NIL Tube 0.01 IU/mL LIAISON SARS-COV-2 S1/S2 IGG 11/24/2024 11:55 AM CDT [facility] [place] Blood BLOOD SPECIMEN / Unknown 11/20/2024 1:51 PM CDT 11/20/2024 1:51 PM CDT us Guero Chase MD LAB ONLY ORDERS Final Result [facility] [place] [address] [facility] [place] [address] documented in this encounter Visit Diagnoses Diagnosis Encounter for general adult medical examination without abnormal findings Unspecified general medical examination documented in this encounter Care Teams Assurance Associate Relationship Specialty Start Date End Date Madison Ren MD [address] [place] [phone] PCP - General Family Medicine 09/10/22 Jody Murray, PROTECTION SPECIALIST-WOOD SHOP TEACHER [address] [place] [id number] PCP - Attributed Provider 09/22/2201/30 Madison Ren MD [address] [place] [phone] PCP - Attributed Provider 02/22/25 documented as of this encounter
--- OUTSIDE RECORDS SUMMARY | 2025-03-20 09:52 | XMS_ITS | Encounter Summary ---
Author Organization [facility] [employer] [facility] Address [address] [place] [address] [address] [place] [address] Care Team Providers Care Strip Machine Operator Name Role Phone Madison Ren MD Primary Care Provider Murray Jodyjasen Gongora BRINE MIXER OPERATOR-PARASITOLOGY TEACHER Unavailable [phone] Reason for Visit * Reason Onset Date Comments Results 02/05/2025 Encounter Details Date Type Department Care Team (Latest Contact Info) Description 02/05/2025 Results Follow-Up [facility] [address] [id number] Domingo Rocha, PAHelenC [address] [address] COMPREHENSIVE METABOLIC PANEL, URINALYSIS REFLEX TO CULTURE (URINE DIP, REFLEX TO MICROSCOPIC, REFLEX TO CULTURE), AMYLASE, Additional followed-up results: 3 Social History Tobacco Use Types Packs/Day Years [...] Gomez LPN documented as of this encounter Nursing Notes * Mitzi Griffin RN - 02/10/2025 6:11 PM CDT Debi was wondering about her labs that were done last Saturday. Informed that they did call her with results on Saturday. Her urine culture showed no growth so no infection. If she is still having problems she needs to follow up with her PCP. Debi did verbalize understanding and appreciation. * Brook Wahl RN - 02/05/2025 4:48 PM CDT LM for the patient to return call to [facility] when able. A Amura message was also sent for the patient's viewing. * Brook Wahl RN - 02/05/2025 4:47 PM CDT ----- Message from Domingo Rocha sent at 02/05/2025 4:36 PM CDT ----- Labs are encouraging. UA is being culture for UTI. At this time no sign of reason to do abdominal CT. Recommend symptomatic measures at this time - keep diet simple. Will determine if abx are needed when urine culture returns either tomorr or saturday ----- Message ----- From: Nicole Arshad Sent: 02/05/2025 3:17 PM CDT To: Walk In [facility] Results Dept documented in this encounter Plan of Treatment Not on file documented as of this encounter Visit Diagnoses Not on filedocumented in this encounter Care Teams Strip Machine Operator Relationship Specialty Start Date End Date Madison Ren MD [address] [place] [address] PCP - General Family Medicine 09/10/22 Jody Murray APRN-PARASITOLOGY TEACHER [address] [place] [address] PCP - Attributed Provider 09/22/2201/30 documented as of this encounter
--- OUTSIDE RECORDS SUMMARY | 2025-03-20 09:52 | XMS_ITS | Clinical Summary ---
Author Organization [email or web address] [facility] Address [address] [place] [address] Care Team Providers Care Film Casting Operator Name Role Phone None Primary Care Provider Unavailabl e Allergies No known active allergies Medications FLUoxetine (PROZAC) 10 mg capsule Take 10 mg by mouth at bedtime. 02/04/2025 Active cetirizine (ZYRTEC) 10 mg tablet Take 10 mg by mouth once daily. Active albuterol HFA (PRO-AIR; VENTOLIN; PROVENTIL) 90 mcg/actuation inhaler Inhale 1 Puff by mouth every 4 hours if needed. 02/04/2025 Active Active Problems Problem Noted Date Diagnosed Date Low serum ferritin level 03/19/2025 Overview (03/19/2025): Mar 2025: Ferritin 9. Anxiety 03/12/2025 Overview (03/12/2025): New Diagnosis Summer 2024, started on fluoxetine. Encounters Date Type Department Care Team Description 03/12/2025 2:40 PM CDT Office Visit [facility] [address] [place] [address] Joe Willis MD Musculoskeletal Problem ([employer] - being seen for fatigue, lightheadedness, nausea to the point of vomiting after physical activity x 1 month ) 03/11/2025 Travel from Last 3 Months Immunizations Immunization Administration Dates Next Due COVID-19 vaccine ([employer] 30mcg/0.3mL) ENIO AVERY 05/09/2022 DTaP 05/04/2010,02/23/2008,07/07/2007 DTaP-IPV (Kinrix) 05/15/2011 HPV 9 (Gardasil 9) 02/03/2024,02/14/2022 Hepatitis A (Peds) 02/01/2023,02/17/2013 Hepatitis B (Peds) 03/17/2009,02/23/2008, 008 Hib Conjugate, Unspecified 02/23/2008 Inactivated Polio Vaccine 05/04/2010,02/23/2008, 07/07/2007 MENINGOCOCCAL VACCINE (MENQU ADFI 0.5ML) 2YO+ POLYSACCHARIDE PF 02/01/2023 MMR 02/23/2008,07/07/2007 Meningococcal Vaccine (Menactra) 02/29/2016 Tdap 02/29/2016 Varicella Vaccine 02/17/2013,05/15/2011 meningococcal B, Recombinant 02/03/2024 Family History Medical History Relation Name Comments Von Hippel-Lindau syndrome Maternal Grandmother Relation Name Status Comments Maternal Grandmother Social History Tobacco Use Types Packs/Day Years Used Date Smoking Tobacco: Never Smokeless Tobacco: Never Tobacco Cessation:Counseling Given: Yes Social Connections Answer Date Recorded Do you often feel lonely or isolated from those around you? 0 03/11/2025 Alcohol Use Answer Date Recorded How often do you have a drink containing alcohol ? 0 03/12/2025 Average Number of Drinks Not on file Frequency of Binge Drinking Not on file 03/01 Financial Resource Strain Answer Date R ecorded Difficulty of Paying Living Expenses 3 03/11/2025 Difficulty of Paying Living Expenses Not on file 03/11/2025 Food Insecurity Answer Date Recorded Do you worry your food will run out before you are able to buy more? 1 03/11/2025 Transportation Needs Answer Date Record ed Does lack of transportation keep you from medica l appointments? 1 03/11/2025 Does lack of transportation keep you from work, meetings or getting things that you need? 1 03/11/2025 Housing Stability Answer Date Recorded What is your housing situation today? 1 03/11/2025 Utilities Answer Date Recorded Do you have trouble paying f or utilities (for example, heat, electricity, water, phone)? 1 03/11/2025 Comments Unknown Sex and Gender Information Value Date Recorded Sex Assigned at Not on file Legal Sex Female 10:37 AM CDT Gender Identity Not on file Sexual Orientation Not on file Travel History Travel Start Travel End [place] 02/19/2025 02/19/2025 Obstetrics History Last Filed Vital Signs Vital Sign Reading Time Taken Comments Blood Pressure 109/72 03/12/2025 2:37 PM CDT Pulse 65 03/12/2025 2:37 PM CDT Temperature - - Respiratory Rate - - Oxygen Saturation 98% 03/12/2025 2:37 PM CDT Inhaled Oxygen Concentration - - Weight 63.7 kg (140 lb 6.4 oz) 03/12/2025 2:37 P M CDT Height 155.6 cm (5' 1.26) 03/12/2025 2:37 PM CD T Body Mass Index 26.3 03/12/2025 2:37 PM CDT Plan of Treatment Upcoming Encounters Date Type Department Care Team (Late st Contact Info) Description 03/29/2025 7:25 AM CDT Office Visit [facility] [address] [place] [address] Joe Willis MD [address] [place] [address] Health Maintenance Due Date Last Done Comments Well Child Check for age 3-20 01/13/2008 Depression screening for age 12+ 2017 HIV for age 15-65 02/13/2020 Chlamydia for age 16-24 2021 Hepatitis C screening for ag e 18-79 2023 HPV series for age 9-45 (3 - 3-dose series) 04/27/2024 02/03/2024, 02/14/2022 COVID-19 vaccine series (2024- season) 2025 05/09/2022, 02/16/2021, 01/25/2021 Influenza Vaccine (#1) 2025 Tetanus booster 02/28/2026 02/29/2016 BMI (ht and wt on same day) for age 18+ 03/12/2026 03/12/2025 RSV vaccine for adults or (1 - 1-dose 75+ series) 02/13/2080 Hepatitis B series for 19+ Completed 03/17, 02/23/2008, 07/07/2007 Meningococcal series for age 11-21 Completed 02/01/2023, 02/29/2016 Pneumococcal series for age 6-49 Aged Out No longer eligible b ased on patient's age to complete this topic Procedures Procedure Name Priority Date/Time Associated Diagnosis Comments CBC WITH AUTO DIFFERENTIAL Routine 03/12/2025 3:43 PM CDT Anxiety COMP METABOLIC PANEL Routine 03/12/2025 3:43 PM CDT Anxiety TSH WITH REFLEX Routine 03/12/2025 3:43 PM CDT Anxiety FERRITIN Routine 03/12/2025 3:43 PM CDT Anxiety CBC WITH AUTO DIFFERENTIAL Routine 03/12/2025 3:43 PM CDT Anxiety from Last 3 Months Results * (ABNORMAL) CBC WITH AUTO DIFFERENTIAL (03/12/2025 3:43 PM CDT) WHITE BLOOD CELL COUNT 5.5 3.8 - 10.8 Thousand/u L 03/13/2025 3:43 AM CDT [facility] RED BLOOD CELL COUNT 4.13 3.80 - 5.10 Million/uL 03/13/2025 3:43 AM CDT [facility] HEMOGLOBIN 12.1 11.7 - 15.5 g/dL 03/13/2025 3:43 AM CDT [facility] HEMATOCRIT 37.8 35.0 - 45.0 % 03/13/2025 3:43 AM CDT [facility] MCV 91.5 80.0 - 100.0 fL 03/13/2025 3:43 AM CDT [facility] MCH 29.3 27.0 - 33.0 pg 03/13/2025 3:43 AM CDT [facility] MCHC 32.0 32.0 - 36.0 g/dL 03/13/2025 3:43 AM CDT [facility] Comment: For adults, a slight decrease in the calculated MCHC value (in the range of 30 to 32 g/dL) is most likely not clinically significant; however, it should be interpreted with caution in correlation with other red cell parameters and the patient's clinical condition. RDW 12.7 11.0 - 15.0 % 03/13/2025 3:43 AM CDT [facility] PLATELET COUNT 212 140 - 400 Thousand/u L 03/13/2025 3:43 AM CDT [facility] MPV 11.8 7.5 - 12.5 fL 03/13/2025 3:43 AM CDT [facility] NEUTROPHILS 51.3 % 03/13/2025 3:43 AM CDT [facility] LYMPHOCYTES 29.4 % 03/13/2025 3:43 AM CDT [facility] MONOCYTES 9.1 % 03/13/2025 3:43 AM CDT [facility] EOSINOPHILS 9.1 % 03/13/2025 3:43 AM CDT [facility] BASOPHILS 1.1 % 03/13/2025 3:43 AM CDT [facility] ABSOLUTE NEUTROPHILS 2822 1500 - 7800 cells/uL 03/13/2025 3:43 AM CDT [facility] ABSOLUTE LYMPHOCYTES 1617 850 - 3900 cells/uL 03/13/2025 3:43 AM CDT [facility] ABSOLUTE MONOCYTES 501 200 - 950 cells/uL 03/13/2025 3:43 AM CDT [facility] ABSOLUTE EOSINOPHILS 501(H) 15 - 500 cells/uL 03/13/2025 3:43 AM CDT [facility] ABSOLUTE BASOPHILS 61 0 - 200 cells/uL 03/13/2025 3:43 AM CDT [facility] Blood BLOOD SPECIMEN / Unknown [facility] / Unknown 03/12/2025 3:43 PM CDT 03/12/2025 3:43 PM CDT us Joe Willis MD HEMATOLOGY Final Res ult [facility] [employer] [employer] [address] [place] [address], * TSH WITH REFLEX (03/12/2025 3:43 PM CDT) TSH W/REFLEX TO FT4 1.27 mIU/L 03/13/2025 4:51 AM CDT [facility] Comment: Reference Range > or = 20 Years 0.40-4.50 Ranges First trimester 0.26-2.66 Second trimester 0.55-2.73 Third trimester 0.43-2.91 Blood BLOOD SPECIMEN / Unknown [facility] / Unknown 03/12/2025 3:43 PM CDT 03/12/2025 3:43 PM CDT us Joe Willis MD CHEMISTRY Final Res ult Performing Organization Address [facility]/ZIP Co de Phone Number [facility] [address] [address], [place] [phone] * (ABNORMAL) FERRITIN (03/12/2025 3:43 PM CDT) FERRITIN 9(L) 16 - 154 ng/mL 03/13/2025 4:51 AM CDT [facility] Blood BLOOD SPECIMEN / Unknown [facility] / Unknown 03/12/2025 3:43 PM CDT 03/12/2025 3:43 PM CDT us Joe Willis MD CHEMISTRY Final Res ult Performing Organization Address [facility] de Phone Number [facility] [address] [address], [place] [phone] * (ABNORMAL) COMP METABOLIC PANEL (03/12/2025 3:43 PM CDT) SODIUM 140 135 - 146 mmol/L 03/13/2025 4:51 AM CDT [facility] POTASSIUM 4.4 3.5 - 5.3 mmol/L 03/13/2025 4:51 AM CDT [facility] CHLORIDE 104 98 - 110 mmol/L 03/13/2025 4:51 AM CDT [facility] CARBON DIOXIDE 27 20 - 32 mmol/L 03/13/2025 4:51 AM CDT [facility] GLUCOSE 85 65 - 99 mg/dL 03/13/2025 4:51 AM CDT [facility] Comment: Fasting reference interval CALCIUM 9.4 8.6 - 10.2 mg/dL 03/13/2025 4:51 AM CDT [facility] CREATININE 1.20(H) 0.50 - 0.96 mg/dL 03/13/2025 4:51 AM CDT [facility] BUN/CREATININE RATIO 8 6 - 22 (calc) 03/13/2025 4:51 AM CDT [facility] EGFR 66 > OR = 60 mL/min/1. 73m2 03/13/2025 4:51 AM CDT [facility] ALBUMIN 4.6 3.6 - 5.1 g/dL 03/13/2025 4:51 AM CDT [facility] PROTEIN, TOTAL 6.6 6.1 - 8.1 g/dL 03/13/2025 4:51 AM CDT [facility] BILIRUBIN, TOTAL 0.3 0.2 - 1.2 mg/dL 03/13/2025 4:51 AM CDT [facility] ALKALINE PHOSPHATASE 44 31 - 125 U/L 03/13/2025 4:51 AM CDT [facility] ALT 32(H) 6 - 29 U/L 03/13/2025 4:51 AM CDT [facility] AST 32(H) 10 - 30 U/L 03/13/2025 4:51 AM CDT [facility] UREA NITROGEN (BUN) 10 7 - 25 mg/dL 03/13/2025 4:51 AM CDT [facility] GLOBULIN 2.0 1.9 - 3.7 g/dL (calc) 03/13/2025 4:51 AM CDT [facility] ALBUMIN/GLOBULIN RATIO 2.3 1.0 - 2.5 (calc) 03/13/2025 4:51 AM CDT [facility] Blood BLOOD SPECIMEN / Unknown [facility] / Unknown 03/12/2025 3:43 PM CDT 03/12/2025 3:43 PM CDT us Joe Willis MD CHEMISTRY Final Res ult [facility] [address] [place] [address], [place] [phone] from Last 3 Months Insurance [facility] Care Teams Film Casting Operator Relationship Specialty Start Date End Date None . PCP - General 10/19/24
--- OUTSIDE RECORDS SUMMARY | 2025-03-20 09:52 | XMS_ITS | Clinical Summary ---
Author Organization [facility] [facility] Address [address] [place] [address] [address] [place] [address] Care Team Providers Care Attendant Coin Operated Laundry Name Role Phone Madison Ren MD Primary Care Provider Madison Ren MD Unavailable Allergies Active Allergy Reactions Criticality Noted Date Comments Environmental Allergens Other (Specify i n Comments) 02/05/2025 allergies Medications cetirizine (ZYRTEC) 10 mg tablet Take by mouth 1 time per day Active albuterol HFA (PROVENTIL,PROAI R,VENTOLIN) 108 (90 Base) MCG/ACT inhalerIndicatio ns: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 ([facility]) Inhale 1 puff by mouth every 4 to 6 hours as needed for shortness of breath, wheezing or cough. Shake well before using. 18 g 1 02/04/2025 10:10 AM CDT 5 Active Cetirizine HCl (CETIRIZINE, ZYRTEC, 10 MG TABLET STARTER PACK) Take 10 mg by mouth Active FLUoxetine (PROZAC) 10 mg capsuleIndicatio ns:Anxiety Take 1 capsule by mouth daily for 2 weeks, then increase to 2 capsules daily 90 capsule 02/04/2025 10:10 AM CDT 5 03/15/20 25 Discontin ued(Thera py completed ) Active Problems Problem Noted Date Diagnosed Date Anxiety 03/12/2025 Overview (03/15/2025): New Diagnosis Summer 2024, started on fluoxetine. Overweight (BMI 25.0-29.9) 02/04/2025 Allergy-induced asthma (HHS-HCC) 02/04/2025 Encounters Date Type Department Care Team Description 03/15/2025 7:15 AM CDT Office Visit [facility] [address] [place] [address] Madison Ren MD Anxiety (Primary Dx); Light headedness; Dizziness Discharge Disposition: Home, Self Care 02/05/2025 3:10 PM CDT - 02/05/2025 11:59 PM CDT Hospital Encounter [address] [id number] Discharge Disposition: Home, Self Care 02/05/2025 2:45 PM CDT Office Visit [facility] [place] [address] [id number] Domingo Rocha PA-C Right lower quadrant abdominal pain (Primary Dx); Nausea and vomiting, unspecified vomiting type; Umbilical pain; Acute pain of right shoulder Discharge Disposition: Home, Self Care 02/05/2025 Results Follow-Up [facility] [place] [address] [address] Domingo Rocha PA-C COMPREHENSIVE METABOLIC PANEL, URINALYSIS REFLEX TO CULTURE (URINE DIP, REFLEX TO MICROSCOPIC, REFLEX TO CULTURE), AMYLASE, Additional followed-up results: 3 02/04/2025 9:00 AM CDT Office Visit [facility] [address] [place] [address] Madison Ren MD Annual physical exam (Primary Dx); 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 ([facility]); Anxiety; Routine sports physical exam; Sprain of left middle finger, unspecified site of digit, subsequent encounter Discharge Disposition: Home, Self Care from Last 3 Months Immunizations Immunization Administration Dates Next Due DTaP(Infanrix) 05/04/2010,02/23/2008,07/07/2007 DTaP-IPV(KINRIX) VACCINE 05/15/2011 HEP B, peds/adol 03/17/2009,02/23/2008, 8 HIB,unspecified 02/23/2008 HPV9 02/03/2024,02/14/2022 Hep A,peds/adol 02/01/2023,02/17/2013 INFLUENZA SINGLE DOSE 0.5ML 6 MONTHS AND UP 03/2022 IPV 05/04/2010,02/23/2008,07/07/2007 MENINGOCOCCAL ACYW-TT(MENQUADFI) 02/01/2023 MMR 02/23/2008,07/07/2007 Meningococcal B,recombinant (Trumenba) Meningococcal MCV40(Menveo) 02/29/2016 Meningococcal MCV4P (Menactra) 02/29/2016 Pfizer COVID-19 Vaccine(Purp le Top) 12 Years and up 05/09/2022,02/16/2021,01/25/2021 TDAP 02/29/2016 Varicella 02/17/2013,05/15/2011 Family History Medical History Relation Comments No Known Problems Brother No Known Problems Father Hypertension Maternal Grandfather Hypertension Maternal Grandmother Not otherwise listed - Cancer Maternal Grandmoth er No Known Problems Mother Diabetes Paternal Grandfather Hypertension Paternal Grandfather Hypertension Paternal Grandmother No Known Problems Sister 1 No Known Problems Sister 2 No Known Problems Sister 3 Arrhythmia Neg Hx Cardiomyopathy Neg Hx Sudden Neg Hx Relation Status Comments Brother Father Maternal Grandfather Maternal Grandmother Mother Paternal Grandfather Paternal Grandmother Sister 1 Sister 2 Alive Sister 3 Alive Social History Tobacco Use Types Packs/Day Years Used Date Smoking Tobacco: Never Passive Smoke Exposure: Never Smokeless Tobacco: Never Tobacco Cessation:Counseling Given: Yes Alcohol Use Standard Drinks/Week Comments No 0 [...] on file Sexual Orientation Not on file Last Filed Vital Signs Vital Sign Reading Time Taken Comments Blood Pressure 98/58 02/05/2025 3:00 PM CDT Pulse 52 02/05/2025 3:00 PM CDT Temperature 36.4 C (97.5 F) 02/05/2025 3:00 PM CDT Respiratory Rate 18 02/05/2025 3:00 PM CDT Oxygen Saturation 99% 02/05/2025 3:00 PM CDT Inhaled Oxygen Concentration - - Weight 65.8 kg (145 lb) 02/05/2025 3:00 PM CDT Height 155.3 cm (5' 1.14) 02/04/2025 8:54 AM CD T Body Mass Index 27.27 02/04/2025 8:54 AM CDT Plan of Treatment Health Maintenance Due Date Last Done Comments Chlamydia Screening if Sexua lly Active 2017 Lipid Screening 2022 Pneumococcal Vaccine (0-5yr; and At-risk 6-49yr) (1 of 2 - PCV) 02/13/2024 HPV Vaccine (3 - 3-dose series) 04/27/2024 , 02/14/2022 Men B Vaccine (2 of 2 - Trum enba SCDM 2-dose series) 08/05/2024 02/03/2024 Influenza Vaccine (#1) 2025 05/09/2022 Asthma Action Plan & Environmental Control 02/04/2026 02/04/2025 Asthma Control Test 02/04/2026 02/04/2025 DTAP,TDAP or TD Vaccine (6 - Td or Tdap) 02/28/2026 02/29/2016, 05/15/2011, 05/04/2010, Additional history exists Hepatitis B Vaccine Completed 03/17/2009, 02/23/2008, 07/07/2007 HIV One Time Screening Ages 15-65 Discontinued Hepatitis C Screening Discontinued Medical Devices Implanted Type Area Ecological Modeler Device Identifier Shelf Expiration Date Model / Serial / Lot Kwire Dbl Tro Pt .[id number] N [id number] Pk6/Ea - [id number] Implanted:Qty : 3 on 03/21/2012 by Nicolas Livingston MD at [facility] Ortho Other Right: [employer] [id number] / / Description:K wire 045x9 Tro Pt 6pk. Biomet Part #[id number] Procedures Procedure Name Priority Date/Time Associated Diagnosis Comments CULTURE BACTERIAL, URINE KURT 02/05/2025 3:15 PM CDT Right lower quadrant abdominal pain Nausea and vomiting, unspecified vomiting type Umbilical pain LAB ONLY-URINE MICROSCOPIC REFLEX KURT 02/05/2025 3:15 PM CDT Right lower [...] Umbilical pain Acute pain of right shoulder URINALYSIS REFLEX TO CULTURE (URINE DIP, REFLEX TO MICROSCOPIC, REFLEX TO CULTURE) KURT 02/05/2025 3:15 PM CDT Right lower quadrant abdominal pain Nausea and vomiting, unspecified vomiting type Umbilical pain COMPREHENSIVE METABOLIC PANEL KURT 02/05/2025 3:15 PM CDT Right lower quadrant abdominal pain Nausea and vomiting, unspecified vomiting type Umbilical pain LAB ONLY-COMPLETE BLOOD COUNT WITH DIFFERENTIAL KURT 02/05/2025 3:15 PM CDT Right lower quadrant abdominal pain Nausea and vomiting, unspecified vomiting type Umbilical pain from Last 3 Months Results * (ABNORMAL) LAB ONLY-URINE MICROSCOPIC REFLEX (02/05/2025 3:15 PM CDT) WBC Urine 11-20 /hpf(A) Negative, 0-5 /hpf 02/05/2025 3:32 PM CDT [facility] RBC Urine 0-2 /hpf Negative, 0-2 /hpf 02/05/2025 3:32 PM CDT [facility] Squamous Epithelial Cells Negative (0-2) /hpf Negative (0-2) /hpf 02/05/2025 3:32 PM CDT [facility] Bacteria Occ (0-10) /hpf(A) Negative 02/05/2025 3:32 PM CDT [facility] Urine URINE SPECIMEN OBTAINED BY CLEAN CATCH PROCEDURE / Unknown 02/05/2025 3:15 PM CDT 02/05/2025 3:15 PM CDT Narrative [facility] - 02/05/2025 3:32 PM CDT Urine Culture Reflexed Domingo Rocha PA-C LAB ONLY ORDERS Final Result [facility] [address] [place] [id number] * (ABNORMAL) LAB ONLY-COMPLETE BLOOD COUNT WITH DIFFERENTIAL (02/05/2025 3:15 PM CDT) WBC 7.6 4.0 - 11.0 K/uL 02/05/2025 3:17 PM [facility] RBC 4.25 3.80 - 5.30 M/uL 02/05/2025 3:17 PM [facility] Hemoglobin 12.4 11.5 - 15.8 g/dL 02/05/2025 3:17 PM [facility] Hematocrit 39.0 35.0 - 45.0 % 02/05/2025 3:17 PM [facility] MCV 91.8 80.0 - 98.0 fL 02/05/2025 3:17 PM T [facility] MCH 29.2 25.5 - 34.0 pg 02/05/2025 3:17 PM [facility] MCHC 31.8 31.5 - 36.5 g/dL 02/05/2025 3:17 PM T [facility] RDW-CV 12.5 11.5 - 15.5 % 02/05/2025 3:17 PM [facility] RDW-SD 42.8 35.5 - 50.0 fl 02/05/2025 3:17 PM [facility] Platelet Count 214 140 - 400 K/uL 02/05/2025 3:17 PM [facility] MPV 10.6 8.5 - 12.0 fL 02/05/2025 3:17 PM [facility] Seg Neut Absolute 4.3 1.8 - 8.0 K/uL 02/05/2025 3:17 PM [facility] Lymphocytes Absolute 1.9 0.8 - 4.1 K/uL 02/05/2025 3:17 PM [facility] Monocytes Absolute 0.6 0.0 - 1.0 K/uL 02/05/2025 3:17 PM [facility] Eosinophils Absolute 0.8(H) 0.0 - 0.7 K/uL 02/05/2025 3:17 PM [facility] Basophil Absolute 0.1 0.0 - 0.2 K/uL 02/05/2025 3:17 PM [facility] Immature Granulocyte Absolute <0.04 0.00 - 0.06 K/uL 02/05/2025 3:17 PM [facility] Neutrophils Abs. (Segs and Bands) 4,300 /uL 02/05/2025 3:17 PM [facility] Neutrophils Percent 55.8 % 02/05/2025 3:17 PM [facility] Lymphocytes Percent 24.7 % 02/05/2025 3:17 PM [facility] Monocytes Percent 7.5 % 02/05/2025 3:17 PM [facility] Immature Granulocyte Percent 0.0 % 02/05/2025 3:17 PM [facility] Eosinophils Percent 11.0 % 02/05/2025 3:17 PM [facility] Basophil Percent 1.0 % 02/06/20 3:17 PM [facility] Blood BLOOD SPECIMEN / Unknown Venipuncture / Unknown 02/05/2025 3:15 PM CDT 02/05/2025 3:15 PM CDT Domingo Rocha PA-C LAB ONLY ORDERS Final Result [facility] [address] [place] [id number] * (ABNORMAL) URINALYSIS REFLEX TO CULTURE (URINE DIP, REFLEX TO MICROSCOPIC, REFLEX TO CULTURE) (02/05/2025 3:15 PM CDT) Color Urine Yellow Kamla, Dark Yellow, Straw, Yellow, Colorless 02/05/2025 3:32 PM T [facility] Clarity Urine Slightly Cloudy(A) Clear 02/05/2025 3:32 PM T [facility] Glucose Urine Negative Negative 02/05/2025 3:32 PM T [facility] Bilirubin Urine Negative Negative 3:32 PM T [facility] Ketones Urine Negative Negative, 5 mg/dL, 10 mg/dL 02/05/2025 3:32 PM T [facility] Specific [place] 1.015 1.002 - 1.030 02/05/2025 3:32 PM [facility] Blood Urine Negative Negative 02/05/2025 3:32 PM [facility] PH Urine 7.0 5.0, 5.5, 6.0, 6.5, 7.0, 7.5, 8.0 02/05/2025 3:32 PM [facility] Protein Urine Negative Negative 02/05/2025 3:32 PM [facility] Urobilinogen < 2 mg/dL < 2 mg/dL 02/05/2025 3:32 PM [facility] Nitrite Negative Negative 02/05/2025 3:32 PM [facility] Leukocyte Esterase Urine Small (1+)(A) Negative 02/05/2025 3:32 PM T [facility] Urine URINE SPECIMEN OBTAINED BY CLEAN CATCH PROCEDURE / Unknown 02/05/2025 3:15 PM CDT 02/05/2025 3:15 PM CDT Narrative [facility] - 02/05/2025 3:32 PM CDT Microscopic Exam Reflexed Domingo Layton Aj PA-C LAB NON BLOOD Final Result Performing Organization Address [facility]/ZIP Co de Phone Number [facility] [address] [address] * CULTURE BACTERIAL, URINE (02/05/2025 3:15 PM CDT) Culture Result No growth at 48 hours 02/07/2025 2:24 PM CDT [facility] Urine URINE SPECIMEN OBTAINED BY CLEAN CATCH PROCEDURE / Unknown 02/05/2025 3:15 PM CDT 02/05/2025 3:15 PM CDT Domingo Layton Aj PA-C LAB MICROBIOLOGY Final Result Performing Organization Address [facility]/ZIP Co de Phone Number [address] [phone] * LIPASE (02/05/2025 3:15 PM CDT) Lipase 45 8 - 78 U/L 02/05/2025 4:19 PM CDT [facility] Blood BLOOD SPECIMEN / Unknown 02/05/2025 3:15 PM CDT 02/05/2025 3:15 PM CDT Domingo CollinsPantech PA-C LAB BLOOD Final Result Performing Organization Address City/[facility] Co de Phone Number [facility] [address] [address] * AMYLASE (02/05/2025 3:15 PM CDT) Amylase 46 25 - 125 U/L 02/05/2025 4:19 PM CDT [facility] Blood BLOOD SPECIMEN / Unknown 02/05/2025 3:15 PM CDT 02/05/2025 3:15 PM CDT Domingo Rocha PA-C LAB BLOOD Final Result [facility] [address] [place] [address] * (ABNORMAL) COMPREHENSIVE METABOLIC PANEL (02/05/2025 3:15 PM CDT) [facility] Glucose 80 70 - 99 mg/dL 02/05/2025 4:19 PM T [facility] BUN 13 6 - 22 mg/dL 02/05/2025 4:19 PM [facility] Creatinine 0.92 0.55 - 1.02 mg/dL 02/05/2025 4:19 PM [facility] BUN/Creatinine Ratio 14.1 10.0 - 25.0 02/05/2025 4:19 PM [facility] Sodium 139 136 - 145 meq/L 02/05/2025 4:19 PM [facility] Potassium 4.5 3.5 - 5.1 meq/L 02/05/2025 4:19 PM [facility] Chloride 108 98 - 109 meq/L 02/05/2025 4:19 PM [facility] CO2 23 20 - 29 meq/L 02/05/2025 4:19 PM [facility] Anion Gap with K 13 6 - 20 meq/L 02/05/2025 4:19 PM [facility] Calcium 8.9 8.5 - 10.5 mg/dL 02/05/2025 4:19 PM [facility] Protein Total 6.3 6.0 - 8.3 g/dL 02/05/2025 4:19 PM [facility] Albumin 4.2 3.5 - 5.0 g/dL 02/05/2025 4:19 PM [facility] Alkaline Phosphatase 43 40 - 150 U/L 02/05/2025 4:19 PM CDT [facility] [place] AST - SGOT 22 <6 - 45 U/L 02/05/2025 4:19 PM CDT [facility] ALT - SGPT 22 <6 - 55 U/L 02/05/2025 4:19 PM CDT [facility] [place] Bilirubin Total 0.2(L) 0.3 - 1.2 mg/dL 02/05/2025 4:19 PM CDT [facility] [place] Age 19 Years 02/05/2025 4:19 PM CDT [facility] eGFRcr() >90 >=60 mL/min/1.7 3m2 02/05/2025 4:19 PM CDT [facility] [place] Comment:Estimated GFR calcul ated using the 2020 CKD-EPI creatinine equation Blood BLOOD SPECIMEN / Unknown 02/05/2025 3:15 PM CDT 02/05/2025 3:15 PM CDT Domingo Rocha PA-C LAB BLOOD Final Result [facility] [address] [id number] [place] [id number] [address] [address] from Last 3 Months Care Teams Attendant Coin Operated Laundry Relationship Specialty Start Date End Date Madison Ren MD [address] [id number] PCP - General Family Medicine 09/10/22 Madison Ren MD [address] [id number] PCP - Attributed Provider 02/22/25
[2025-03-20 09:56] VITALS: BP 112/69; PULSE 62; RESP 18; O2SAT 98; BMI 25.9
--- NOTE | 2025-03-20 09:59 | ED.GENADULT ---
HPI - General Adult General Date Seen: 03/20/25 Chief complaint: Laceration/Wound Stated complaint: Deep cut between toes right foot Time Seen by Provider: 03/20/25 09:59 History of Present Illness HPI narrative: 20 yo F presenting to the ER for a laceration in the webpace between the 4th and 5th toes of her right foot. She sustained the injury yesterday evening. She was running down the hallway in her dorm room and accidentally hit her toe against the doorjamb. She does not think her toes are broken but she did suffer a laceration. Bleeding was controlled by direct pressure. When she looked to the wound again this morning she noticed that it was gaping so she decided to come in. She has already cleaned the wound with soap and water and rubbing alcohol. She is generally healthy. She is up-to-date with her tetanus. No diabetes or immunosuppression. Related Data Home Medications ?Medication ?Instructions ?Recorded ?Confirmed albuterol sulfate 90 mcg/actuation inhalation 03/20/25 aerosol inhaler Allergies Allergy/AdvReac Type Severity Reaction Status Date / Time No Known Drug Allergies Allergy Verified 03/20/25 09:59 Exam Narrative: Exam Narrative: Constitutional: Appears well-developed and well-nourished. Active. Non-toxic appearing. Very pleasant. HENT: Head: Atraumatic. No signs of injury. Nose: No nasal discharge. Mouth/Throat: Mucous membranes are moist. Pharynx is normal. Tonsils symmetric. Uvula midline. Airway patent. Eyes: Conjunctivae normal and EOM are normal. Pupils are equal, round, and reactive to light. Right eye exhibits no discharge. Left eye exhibits no discharge. No icterus. Neck: Normal range of motion. Neck supple. No adenopathy. No stridor. Cardiovascular: Normal rate and regular rhythm. No murmur heard. No murmurs, rubs, or gallops. Brisk capillary refill Pulmonary/Chest: Effort normal. No stridor. No respiratory distress. No wheezes.No rhonchi. No rales. No retractions. Abdominal: Soft. Bowel sounds are normal. No distension. No mass. There is no tenderness. There is no rebound and no guarding. Musculoskeletal: Normal range of motion. No edema. No tenderness. No deformity. Inspection of her right foot reveals a 1 cm laceration in the webspace between the 4th and 5th toes that does extend on to the plantar surface at the base of the 5th toe. It is gaping a couple of mm. No active bleeding. No foreign body. There is no surrounding ecchymosis or bruising. No bony tenderness of the 5th toe, 4th toe, or of the metatarsals. Patient has intact flexion extension of her toes and intact distal sensory function. Normal capillary refill. Neurological: Alert. Normal strength. No cranial nerve deficit or sensory deficit. Coordination normal. GCS eye subscore is 4. GCS verbal subscore is 5. GCS motor subscore is 6. Skin: Skin is warm. No rash noted. Const: Vital Signs, click to edit/add: Vital Signs - 24 hr 03/20/25 09:56 03/20/25 10:09 Temperature 97.7 F Pulse Rate [Right Pulse Oximeter] 62 Respiratory Rate 18 Blood Pressure [Ri ght Upper Arm] 112/69 Pulse Oximetry 98 Oxygen Delivery Me thod Room Air Course Vital Signs Vital signs: Initial Vital Signs Pulse Rate 62 03/20/25 09:56 Pulse Rhythm Regular 03/20/25 09:56 Pulse Strength 3+ Normal 03/20/25 09:56 Respiratory Rate 18 03/20/25 09:56 Blood Pressure 112/69 03/20/25 09:56 Blood Pressure Mean 83 03/20/25 09:56 Blood Pressure Position Sitting 03/20/25 09:56 Pulse Oximetry 98 03/20/25 09:56 Oxygen Delivery Method Room Air 03/20/25 09:56 Vital Signs Pulse Rate 62 03/20/25 09:56 Respiratory Rate 18 03/20/25 09:56 Blood Pressure 112/69 03/20/25 09:56 Pulse Oximetry 98 03/20/25 09:56 Oxygen Delivery Method Room Air 03/20/25 09:56 Temperature 97.7 F 03/20/25 10:09 Pulse Rate 62 03/20/25 09:56 Respiratory Rate 18 03/20/25 09:56 Blood Pressure 112/69 03/20/25 09:56 Pulse Oximetry 98 03/20/25 09:56 Oxygen Delivery Method Room Air 03/20/25 09:56 Medical Decision Making MDM Narrative Medical decision making narrative: Findings and exam are consistent with an webspace toe laceration which was repaired as noted above. There is no evidence at this time to suggest any associated fracture or foreign body. Patient does not think it is broken and I agree. We agreed to hold off on x-rays. There is no evidence to suggest tendon or arterial injury and patient is neurologically in tact. The patient is to follow up for suture removal as instructed in 9 days (a week from Saturday). Indications to seek urgent reevaluation and signs of infection (including but not limited to increasing pain, redness, swelling, fevers, and drainage) were reviewed. Tetanus is up-to-date. This is a clean and non-contaminated wound in which prophylactic antibiotics are not indicated. It is in a difficult area. Will place the patient into a ortho shoe to help protect the wound so does not get pulled apart by walking. Patient understands the risk of dehiscence. 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 An understanding of the discharge instructions and need for follow up were verbally confirmed. Discharge Plan Discharge Clinical Impression: Laceration of toe of right foot Patient Disposition: Home, Self-Care Condition: Stable Instructions: Laceration (DC) Additional Instructions: As we discussed, please follow-up to have your stitches removed in 9 days, next Saturday). To care for your wound, try to keep a dressing in place with antibiotic ointment. Keep the wound clean and dry. It is located gently wash the wound once per day, but do not submerge the wound under water. After the wound is clean, gently dried and then reapply a small amount of antibiotic ointment and a new gauze dressing to protect her toes and stitches. Wear the postop shoe for the next several days and then protective footwear after that. Avoid strenuous activities that require lot of running or jumping or other activities that require you to bend or flex your toes. Watch for signs of infection, such as redness, swelling, or pus. If any of these symptoms develop or if you have any other concerns, please come back to the ER right away to be rechecked. Prescriptions: No Action albuterol sulfate 90 mcg/actuation HFA aerosol inhaler inhalation Follow Up/Referrals: Joe Willis MD [Primary Care Provider, Family Practice] Stand Alone Forms: Work/School Release, MyHealth Info Instructions Procedures Laceration Toe laceration between 4th and 5th webspace of right foot: Verification/time out: correct patient and correct procedure (Verbal consent) Site: lower extremity Side (If applicable): right Size (cm): 1 Description: linear Depth: simple, single layer Local Anesthetic: bupivacaine 0.25% Skin layer closed with: nylon Size (cm): 5-0 Number of sutures: 4 Technique: simple, interrupted
[2025-03-20 10:09] VITALS: TEMP 36.5
== END 2025-03-20 11:44 | disposition home or self-care (01) ==
PROVIDERS: Emergency Provider Emergency Medicine; PCP Family Medicine
DX: S91.311A Laceration without foreign body, right foot, initial encounter (principal); W22.09XA Striking against other stationary object, initial encounter; Y93.02 Activity, running; Y92.168 Other place in school dormitory as the place of occurrence of the external cause
CPT/HCPCS: 12001; 99282; 99283